=== PATIENT | male | born 1980 | race Caucasian/White ===

== ENCOUNTER 2016-08-04 15:01 | Emergency (ER) | payer OTHER ==
[2016-08-04 15:28] VITALS: BP 128/67; PULSE 61; TEMP 98.5; BMI 22.5
--- NOTE | 2016-08-04 16:29 | PDOC ---
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 There is a range room that is being remodeled with extensive construction. Have need to guard the room while outside contractors are present. During this time of construction ranging from 6-3 months patient uses no or eye protection. Cleaning company today arrived who stated debris appeared to be consistent with an aspestos. Was not confirmed by laboratory analysis. Patient denies any respiratory complaints, denies any skin changes, denies any eye burning or any runny nose. Is asymptomatic and here for documentation of potential exposure 08/04/16 16:46 Timing: just prior to arrival Exposed Location: Bilateral: Eye(s), Other exposed area(s) (respiratory) Past History - Travel Traveled outside of the country in the last 30 days: No Close contact w/someone who was outside of country & ill: No - Past Medical History Allergies/Adverse Reactions: Allergies No Known Allergies Allergy (Verified 08/04/16 15:28) Home Medications: Ambulatory Orders NK [No Known Home Medication] 10/03/14 General: Yes: no pertinent history Surgical History: Yes: No Surgical History - Immunization History Immunizations Up to Date: Yes Tetanus Status: Less than 5 years - Social History Smoking History: No Smoking Status: Never smoked Number of Ciarettes Per Day: 0 Alcohol Use: none Drug Use: none Review of Systems - Review of Systems Able to Perform ROS?: Yes Is the patient limited Greek proficient: Yes Constitutional: Yes: See HPI, Malaise. No: Symptoms Reported, Chills, Fever HEENTM: Yes: See HPI. No: Symptoms Reported Respiratory: Yes: See HPI. No: Symptoms reported, Cough, Shortness of Breath, Wheezing Musculoskeletal: No: Symptoms Reported, See HPI Integumentary: Yes: See HPI. No: Symptoms Reported All Other Systems: Reviewed and Negative *Physical Exam - Vital Signs Last Vital Signs Temp Pulse Resp BP Pulse Ox 98.5 F 61 17 128/67 98 08/04/16 15:26 08/04/16 15:26 08/04/16 15:26 08/04/16 15:26 08/04/16 15:26 - Physical Exam General Appearance: Yes: Nourished, Appropriately Dressed. No: Apparent Distress HEENT: positive: JUSTIN, Normal ENT Inspection, Normal Voice, TMs Normal, Pharynx Normal Neck: positive: Supple. negative: Tender Respiratory/Chest: positive: Lungs Clear, Normal Breath Sounds Extremity: positive: Normal Capillary Refill, Normal Inspection, Normal Range of Motion Integumentary: positive: Normal Color, Dry, Warm Neurologic: positive: medical billing coder II-XII NML intact, Fully Oriented, Alert, Normal Mood/ Affect, Normal Response, Motor Strength 5/5 *DC/Admit/Observation/Transfer Diagnosis at time of Disposition: Suspected exposure to asbestos - Discharge Dispostion Disposition: HOME Condition at time of disposition: Stable Admit: No - Referrals - Patient Instructions Additional Instructions: Rest Drink lots fluids. See Occupational Health for followup - Post Discharge Activity Work/School Note: Back to Work
== END 2016-08-04 17:07 | disposition home or self-care (01) ==
LOC: SUPCPDRO 15:01 → JERFT 15:01
DX: Z77.090 Contact with and (suspected) exposure to asbestos (principal); X58.XXXA Exposure to other specified factors, initial encounter; Y93.89 Activity, other specified; Y92.61 Building [any] under construction as the place of occurrence of the external cause; Y99.0 Civilian activity done for income or pay
CPT/HCPCS: 99281-25